=== PATIENT | female | born 1990 | race Caucasian/White ===

== ENCOUNTER 2022-12-10 11:20 | Day surgery (SDC) | payer BC ==
[2022-12-10 11:40] VITALS: BMI 43.6
[2022-12-10] MEDS ORDERED: ACETAMINOPHEN 1000 MG/100 ML BAG IVPB ONE (12:31)
[2022-12-10] MEDS ORDERED: SODIUM CHLORIDE 0.9% 1000 ML INFUS.BAG IV ONE ×2 (12:31→15:41)
[2022-12-10] MEDS ORDERED: ACETAMINOPHEN INJECTION 100 ML IVPB ONE (12:33)
[2022-12-10 12:57] LABS: BASO % 0.6 % (0-2.0); EOS % 1.5 % (0-4.5); HEMATOCRIT 29.8 % (32.4-45.2); HEMOGLOBIN 9.5 GM/dL (10.7-15.3); LYMPH % 17.9 % (8-40); MCH 20.9 pg (25.7-33.7); MEAN CELL VOLUME 65.4 fl (80-96); MEAN PLT VOLUME 8.2 fl (7.5-11.1); MONO % 4.1 % (3.8-10.2); NEUT % 75.9 % (42.8-82.8); PLATELET COUNT 372 10^3/uL (134-434); RBC 4.55 M/mm3 (3.60-5.2); RDW 17.1 % (11.6-15.6); WHITE BLOOD COUNT 13.9 K/mm3 (4.0-10.0)
[2022-12-10 13:04] LABS: INR 1.09 (0.83-1.09); PROTHROMBIN TIME (PATIENT) 12.6 SEC (9.7-13.0)
[2022-12-10 13:07] LABS: ACTIVATED PTT 28.2 SECONDS (25.2-36.5)
[2022-12-10 13:18] VITALS: RESP 18
[2022-12-10 13:19] LABS: HCG,QUALITATIVE URINE Positive
[2022-12-10 13:20] LABS: POTASSIUM 3.8 mmol/L (3.5-5.1)
[2022-12-10 13:21] LABS: EPI CELLS 14 /uL (0-25.1); HYALINE CASTS 0 /uL (0-3.1); PH,URINE 5.5 (5.0-8.0); URINE APPEARANCE CLEAR; URINE BACTERIA 158 /uL (0-1359); URINE BILIRUBIN NEGATIVE (NEGATIVE); URINE COLOR YELLOW; URINE GLUCOSE (UA) NEGATIVE (NEGATIVE); URINE KETONE NEGATIVE (NEGATIVE); URINE LEUK ESTERASE NEGATIVE (NEGATIVE); URINE NITRITE NEGATIVE (NEGATIVE); URINE PROTEIN NEGATIVE (NEGATIVE); URINE RBC 485 /uL (0-23.9); URINE UROBILINOGEN 0.2 mg/dL (0.2-1.0); URINE WBC 12 /uL (0-25.8)
[2022-12-10 13:27] LABS: BLOOD UREA NITROGEN 6.2 mg/dL (7-18); CALCIUM 8.6 mg/dL (8.5-10.1)
[2022-12-10 13:30] LABS: ANISOCYTOSIS 3+; CREATININE 0.5 mg/dL (0.55-1.3); MACROCYTOSIS 0; OVALOCYTE 1+; TARGET CELLS 1+
[2022-12-10 13:31] LABS: BILIRUBIN,TOTAL 0.5 mg/dL (0.2-1)
[2022-12-10 13:32] LABS: TOT PROT 7.4 g/dl (6.4-8.2)
[2022-12-10] MEDS ORDERED: morphine CARPU-JECT 4 MG/1 ML DISP.SYRIN IVPUSH ONE (15:16)
[2022-12-10] MEDS ORDERED: morphine SULFATE 4 MG/ML VIAL ONE (15:21)
[2022-12-10] MEDS ORDERED: ONDANSETRON 4 MG/2 ML VIAL IVPUSH ONE (16:18)
[2022-12-10] MEDS ORDERED: ONDANSETRON 4 MG/2 ML VIAL ONE (16:19)
[2022-12-10 17:40] LABS: BASO % 0.4 % (0-2.0); EOS % 0.4 % (0-4.5); HEMOGLOBIN 8.4 GM/dL (10.7-15.3); MCH 20.6 pg (25.7-33.7); MCHC 31.3 g/dl (32.0-36.0); MEAN CELL VOLUME 65.8 fl (80-96); MEAN PLT VOLUME 7.9 fl (7.5-11.1); MONO % 3.9 % (3.8-10.2); NEUT % 85.3 % (42.8-82.8); PLATELET COUNT 324 10^3/uL (134-434); RDW 17.2 % (11.6-15.6); WHITE BLOOD COUNT 15.5 K/mm3 (4.0-10.0)
[2022-12-10] MEDS ORDERED: ACETAMINOPHEN 1000 MG/100 ML BAG IVPB PRN (19:42)
[2022-12-10] MEDS ORDERED: SODIUM CHLORIDE 1,000 ML IV SCH (20:00)
[2022-12-11 00:11] LABS: BASO % 0.5 % (0-2.0); EOS % 0.6 % (0-4.5); HEMATOCRIT 25.9 % (32.4-45.2); HEMOGLOBIN 7.9 GM/dL (10.7-15.3); LYMPH % 22.9 % (8-40); MCH 20.3 pg (25.7-33.7); MCHC 30.3 g/dl (32.0-36.0); MEAN PLT VOLUME 7.8 fl (7.5-11.1); MONO % 4.4 % (3.8-10.2); NEUT % 71.6 % (42.8-82.8); PLATELET COUNT 325 10^3/uL (134-434); RBC 3.87 M/mm3 (3.60-5.2); RDW 17.2 % (11.6-15.6); WHITE BLOOD COUNT 12.3 K/mm3 (4.0-10.0)
[2022-12-11 05:52] LABS: BASO % 0.5 % (0-2.0); EOS % 1.3 % (0-4.5); HEMATOCRIT 25.6 % (32.4-45.2); HEMOGLOBIN 7.9 GM/dL (10.7-15.3); LYMPH % 23.2 % (8-40); MCH 20.6 pg (25.7-33.7); MCHC 30.9 g/dl (32.0-36.0); MEAN CELL VOLUME 66.7 fl (80-96); MEAN PLT VOLUME 7.9 fl (7.5-11.1); PLATELET COUNT 307 10^3/uL (134-434); RBC 3.85 M/mm3 (3.60-5.2); RDW 16.6 % (11.6-15.6); WHITE BLOOD COUNT 11.5 K/mm3 (4.0-10.0)
[2022-12-11 07:57] VITALS: TEMP 98.5
[2023-01-07 18:55] VITALS: BP 138/84; PULSE 99
== END 2022-12-11 07:59 | disposition home or self-care (01) ==
LOC: JER 11:20 → JERBED 19:35 → UNDOADMIN 19:35 → JASUSAT 19:52
PROVIDERS: ATTEND Student in an Organized Health Care Education/Training Program
DX: N93.9 Abnormal uterine and vaginal bleeding, unspecified (principal); N83.202 Unspecified ovarian cyst, left side; Z3A.01 Less than 8 weeks gestation of pregnancy
CPT/HCPCS: 36415; 76830-TC; 80053; 81003; 84702; 84703; 85025; 85610; 85730; 86850; 86900; 86901; 87086; 99285-25

== ENCOUNTER 2022-12-12 08:43 | Emergency (ER) | payer BC ==
[2022-12-12 09:02] VITALS: BMI 43.6
[2022-12-12 10:32] LABS: BASO % 0.6 % (0-2.0); EOS % 1.7 % (0-4.5); HEMATOCRIT 29.9 % (32.4-45.2); HEMOGLOBIN 9.1 GM/dL (10.7-15.3); LYMPH % 25.8 % (8-40); MCH 20.3 pg (25.7-33.7); MCHC 30.3 g/dl (32.0-36.0); MEAN CELL VOLUME 67.1 fl (80-96); MEAN PLT VOLUME 8.2 fl (7.5-11.1); MONO % 5.2 % (3.8-10.2); NEUT % 66.7 % (42.8-82.8); PLATELET COUNT 357 10^3/uL (134-434); RBC 4.46 M/mm3 (3.60-5.2); RDW 17.1 % (11.6-15.6); WHITE BLOOD COUNT 9.7 K/mm3 (4.0-10.0)
[2022-12-12] MEDS ORDERED: METHOTREXATE SODIUM/PF 25 MG/ML VIAL IM ONE (11:31)
[2022-12-12 13:16] VITALS: BP 122/79; PULSE 95; RESP 16; TEMP 98.2
== END 2022-12-12 13:26 | disposition home or self-care (01) ==
LOC: JERFT 08:43
PROC: 3E023GC Introduction of Other Therapeutic Substance into Muscle, Percutaneous Approach (ICD-10-PCS; principal; 2022-12-12)
DX: O03.9 Complete or unspecified spontaneous abortion without complication (principal)
CPT/HCPCS: 36415; 84702; 85025; 99284-25; J9260